=== PATIENT | female | born 1985 | race Caucasian/White ===

== ENCOUNTER 2021-09-04 17:23 | Emergency (ER) | payer OTHER, SELFPAY ==
[2021-09-04 17:24] VITALS: BP 136/99; PULSE 75; RESP 16; TEMP 36.8; O2SAT 100; BMI 23.5
--- NOTE | 2021-09-04 17:42 | CT_ITS ---
EXAM: CT ABDOMEN AND PELVIS WITHOUT INTRAVENOUS CONTRAST CLINICAL INDICATION: Kidney Stone - L flank pain TECHNIQUE: Helically acquired images were obtained of the abdomen and pelvis without intravenous contrast. This CT exam was performed using one or more of the following dose reduction techniques: automated exposure control, adjustment of the mA and/or kV according to patient size, and/or use of iterative reconstruction technique. This report was created using [employer] report generation technology. COMPARISON: 06/12/2015. FINDINGS: LOWER THORAX: Unremarkable. Lung bases are clear. No cardiomegaly. No significant pericardial effusion. ABDOMEN: LIVER: Unremarkable. Homogeneous. GALLBLADDER AND BILE DUCTS: Unremarkable. No calcified gallstones. No gallbladder distention or wall edema. No intra- or extrahepatic biliary ductal dilation. PANCREAS: Unremarkable. No focal cystic mass. SPLEEN: Unremarkable. Normal size without focal cystic or solid mass. ADRENALS: Unremarkable. No nodules. KIDNEYS AND URETERS: Bilateral nonobstructing renal calculi measuring up to 6 mm in diameter. No hydronephrosis. Ureters are normal in course and caliber. No ureteral stones. Normal renal size and position. STOMACH AND BOWEL: Unremarkable. No stomach or bowel distention. No focal inflammatory change. PELVIS: APPENDIX: No evidence of acute appendicitis. Normal visualized appendix. BLADDER: Unremarkable. REPRODUCTIVE: Unremarkable as visualized. No mass. ABDOMEN and PELVIS: INTRAPERITONEAL SPACE: Unremarkable. No ascites or other fluid collection. No free air. BONES/JOINTS: Unremarkable. No suspicious lytic or blastic abnormality. SOFT TISSUES: Unremarkable. No discrete abdominal or pelvic wall hernia. VASCULATURE: Unremarkable. Abdominal aorta is normal in caliber. LYMPH NODES: Unremarkable. No enlarged lymph nodes. CT/Abdomen/Pelvis without Cont IMPRESSION: Bilateral nonobstructing renal calculi. Electronically Signed: Lexis Porter MD at 19:55 EST Reading Location ID and State: [id number] / Tel , Service support ,
--- NOTE | 2021-09-04 17:42 | ED.VIS.GI ---
HPI HPI - GI History of Present Illness Chief Complaint: Flank Pain Informant: patient Abdominal Pain/Flank Pain Onset: Hours (4) Context: Gradual Onset Timing: Continuous and Waxes and wanes Quality: Aching Location: LUQ and Left Flank Current Severity: Moderate Maximum Severity: Moderate Worsened by: Nothing Relieved by: Nothing Nausea/Vomiting/Emesis GI Symptom: Negative for Nausea and Vomiting Diarrhea/Melena/Hematochezia GI Symptom: Negative for Diarrhea, Melena and Hematochezia Associated Symptoms Associated Symptoms: Negative for Dysuria, Frequency, Hematuria and Urgency Narrative Narrative: Patient with a history of kidney stones feels like she is having another 1. Gradual onset left upper quadrant pain progressing and radiating into her left back, feels like prior kidney stones. She has needed lithotripsy in the past and is also passed stones, she has not had one since 2016. [facility] Medical History (Updated 09/04/21 @ 20:[address] Nathan Vences MD) Kidney stones Home Medications Prenatabs FA 1 tab PO DAILY 04/21/16 [History Last Taken 04/20/16 09:00 1 tab] Zantac 75 75 mg PO BID 04/21/16 [History Last Taken 04/21/16 23:00 75 mg] Allergy/AdvReac Type Severity Reaction Status Date / Time No Known Allergies Allergy Verified 09/04/21 17:24 Social History Smoking Status: Never smoker ROS ROS ED Constitutional Constitutional ED: Denies chills or fever(s) Eyes Eyes: Denies change in vision or diplopia ENT ENT ED: Denies rhinorrhea or sore throat Cardiovascular Cardiovascular: Denies chest pain or palpitations Respiratory/Chest Respiratory/Chest: Denies cough or dyspnea Gastrointestinal Gastrointestinal: Reports as per HPI and abdominal pain; Denies diarrhea, nausea or vomiting Genitourinary Genitourinary ED: Reports flank pain; Denies dysuria or hematuria Musculoskeletal Musculoskeletal: Denies back pain or neck pain Integumentary Denies abscess or rash Neurologic Neurologic: Denies headache(s), paresthesias or weakness Psychiatric Psychiatric: Denies anxiety or suicidal thoughts EXAM Physical Exam Const Vital Signs: 09/04/21 17:24 Temperature 98.3 F Temperature Source Temporal Pulse Rate 75 Respiratory Rate 16 Blood Pressure 136/99 H Blood Pressure Mean 111 Pulse Ox 100 Oxygen Delivery Method Room Air Positive well nourished and well developed General Appearance ED: well developed and NAD HEENT Reports moist mucous membranes normocephalic and atraumatic Eyes PERRL and EOMs intact bilaterally Neck full ROM and supple Resp normal respiratory effort and clear to auscultation bilaterally Cardio regular rate, regular rhythm and no murmurs GI non-distended GI Narrative: Mild tenderness in the lateral aspect of the left upper quadrant. No guarding or rebound tenderness. No palpable mass or splenomegaly. Auscultation: normoactive bowel sounds Palpation: soft Back/Spine normal to inspection General Back: CVA tenderness left (Mild) and other FROM Extremity normal to inspection General Extremety ED: Negative for edema, pulses abnormal or tenderness General Extremity: Negative for edema or pulses abnormal Neuro oriented x3, CN's II-XII intact bilaterally and no sensory deficits noted Sensorium / Orientation: awake and alert Motor Exam: strength 5/5 throughout Skin no rashes or lesions noted and no wounds MDM MDM MDM Narrative Medical decision making narrative: Patient was given IV Toradol, her pain is resolved on reevaluation, and upon myself looking at her CT, she has a fairly decent sized stone that is sitting in the bladder although the radiologist did not comment on it. Given this I think she passed the stone. She does have multiple renal calculi that are nonobstructing, I discussed those with her. She states she has passed stones up to 7 mm in the past, 1 of these is 6 mm which I told her about. There were calcium oxalate crystals in her urine, she has been diagnosed with calcium oxalate stones in the past and has a urologist she plans on following up with. We discussed reasons to return. Lab Data Attestation: I reviewed the patient's lab results. Labs: Laboratory Results - last 24 hr 09/04/21 17:35 Urine Color Yellow Urine Clarity Clear Urine pH 5.0 Ur Specific [place] 1.030 Urine Protein 15 H Urine Glucose (UA) Normal Urine Ketones 5 H Urine Occult Blood 25 H Urine Nitrite Negative Urine Bilirubin Negative Urine Urobilinogen 1 H Ur Leukocyte Esterase 25 H Urine RBC 0-5 SEEN Urine WBC 0-5 SEEN Ur Squamous Epith Cells 0-5 SEEN Calcium Oxalate Crystal 1+ Urine Bacteria 1+ Urine Mucus 0 SEEN Urine Test Negative Radiography Diagnostic Testing: Clinical Impression(s) from Imaging Studies Abdomen/Pelvis CT 09/04/21 17:42 IMPRESSION: Bilateral nonobstructing renal calculi. Electronically Signed: Lexis Porter MD at 19:55 EST Reading Location ID and State: [id number] / Tel , Service support , Discharge Plan Triage Chief Complaint: Flank Pain ED Provider: Nathan Vences Dx/Rx/DC Orders Clinical Impression: Colic, ureteral, Urolithiasis Instructions: ED Kidney Stone, Passed Prescriptions: No Action Prenatabs FA tablet 1 tab PO DAILY RF: 0 Zantac 75 tablet 75 mg PO BID RF: 0 Primary Care Provider: Amadeo Martin Referrals: Amadeo Martin, [Primary Care Provider] - As Needed (and/or your urologist) Disposition Disposition: Home, Self Care
[2021-09-04] MEDS: Ketorolac 60 MG/2 ML Vial IM (17:51)
[2021-09-04 18:08] LABS: Mucous, Urine 0 SEEN /hpf (<or=2+)
[2021-09-04 18:26] LABS: Color, Urine Yellow (Yellow); Glucose, Dipstick Normal (Normal); Ketone-Dipstick 5 mg/dl (Negative); Leukocyte Esterase-Dipstick 25 /ul (Negative); Nitrite-Dipstick Negative (Negative); Occult Blood-Urine 25 /ul (Negative); Protein-Dipstick 15 mg/dl (Negative); Urine Bilirubin Dipstick Negative (Negative); Urine Clarity Clear (Clear); Urine Urobilinogen 1 mg/dl (Normal)
--- NOTE | 2021-09-04 18:27 | ED.RN ---
30 mg tor[address]ol given iv. Dr Ru berger. .
[2021-09-04 18:28] LABS: Internal QC Validated? YES +Cl - CLEAR BKGD; Pregnancy, Urine Negative Negative
[2021-09-04 18:33] LABS: Red Blood Cells-Urine 0-5 SEEN /hpf (0-5)
[2021-09-04 18:34] LABS: Bacteria 1+ /hpf (None Seen); Calcium Oxalate Crystals Ur 1+ /hpf (<or=2+); Squamous Epithelial Cells - UA 0-5 SEEN /hpf (5-10); White Blood Cells 0-5 SEEN /hpf (0-5)
[2021-09-04 20:13] VITALS: RESP 16
== END 2021-09-04 20:13 | disposition home or self-care (01) ==
PROVIDERS: Emergency Provider Emergency Medicine; PCP Student in an Organized Health Care Education/Training Program; Visit Provider Emergency Medicine
DX: N20.0 Calculus of kidney (principal); Z87.442 Personal history of urinary calculi
CPT/HCPCS: 74176; 81001; 81025; 96372; 99283

== ENCOUNTER 2022-07-05 07:09 | Emergency (ER) | payer OTHER, SELFPAY ==
[2022-07-05 07:09] VITALS: BP 135/94; PULSE 69; RESP 18; TEMP 36.7; O2SAT 100
[2022-07-05 07:10] VITALS: BP 141/100; PULSE 76; RESP 16; TEMP 36.1; O2SAT 100; BMI 22.4
--- NOTE | 2022-07-05 07:32 | CT_ITS ---
INDICATION: Abdominal pain EXAMINATION: CT ABDOMEN AND PELVIS WITHOUT CONTRAST - CT Abdomen And Pelvis W/O Contrast Injection TECHNIQUE: Helically acquired images were obtained of the abdomen and pelvis without oral or IV contrast. A radiation dose optimization technique was used for this scan. IV Contrast dosage and agent: None. Oral contrast: None. COMPARISON: 09/04/2021. FINDINGS: LOWER CHEST: Lung bases are clear. No cardiomegaly or pericardial effusion. LIVER: Homogeneous. No focal mass. GALLBLADDER AND BILIARY TREE: No calcified gallstones. No gallbladder distension or wall edema. No intra- or extrahepatic biliary ductal dilation. PANCREAS: No focal cystic or solid mass. SPLEEN: Normal size without focal cystic or solid mass. ADRENAL GLANDS: No nodules. KIDNEYS AND URETERS: Punctate bilateral nonobstructing renal stones are again seen, the largest is in the lower pole of the left kidney measuring about 6 mm. Prominence of the pelvicalyceal systems bilaterally not seen on the previous exam. No evidence of ureteral stones. PERITONEUM: No ascites or free air. No other fluid collection. BOWEL: Normal caliber small bowel loops. Unremarkable appendix. No evidence of acute diverticulitis. No focal inflammatory change. LYMPH NODES: No enlarged mesenteric or retroperitoneal lymph nodes. VESSELS: Aorta is non-dilated. URINARY BLADDER: Unremarkable. REPRODUCTIVE ORGANS: 2 cm right adnexal cyst. Tampon in the cervical region. Slightly prominent uterus. ABDOMINAL WALL: No discrete abdominal or pelvic wall hernia. BONES: No lytic or blastic abnormality. CT/Abdomen/Pelvis without Cont IMPRESSION: 1. Persistent bilateral nonobstructing renal stones. 2. Mild bilateral hydronephrosis new since previous exam without evidence of ureteral stones. Recently passed stone is possible. 3. Otherwise no focal acute inflammatory process. Electronically Signed: Bharathi Grayson MD at 8:53 EST ,
--- NOTE | 2022-07-05 07:45 | EDS_ITS ---
HPI History of Present Illness Chief Complaint: Flank Pain Informant: patient Narrative Narrative: Patient presents with sharp left lower quadrant pain. She states she had left flank pain earlier in the week that was like her kidney stone pain but it went away completely. She has had no urinary symptoms. About 5:45 this morning she got sudden sharp pain at the left lower quadrant. It did radiate slightly to her back but mostly it was the left lower quadrant. It seemed to be more anterior than posterior. She did get nauseated but no vomiting. No fevers or chills. She states she felt fine immediately before the onset of this. Her menstrual cycles have been regular because she was placed on the minipill several months ago. But she has not had any pains. Only abdominal surgery is C-sections. [facility] Medical History (Updated 07/05/22 @ 09:[address] John Simmons MD) Kidney stones Home Medications hydrochlorothiazide 25 mg tablet 25 mg PO DAILY 07/05/22 [History Last Taken 07/05/22 07:00] hydrocodone-acetaminophen 5-325mg 5mg-325mg 1 tab PO Q6H PRN pain 3 days #10 tabs 07/05/22 [Rx Last Taken Unknown] norethindrone (contraceptive) 0.35 mg tablet 0.35 mg PO DAILY 07/05/22 [History Last Taken Unknown] ondansetron 4 mg disintegrating tablet 4 mg PO Q8H PRN nausea and vomiting #10 tabs 07/05/22 [Rx Last Taken Unknown] Allergy/AdvReac Type Severity Reaction Status Date / Time No Known Allergies Allergy Verified 09/04/21 17:24 Surgical History (Updated 07/05/22 @ 07:58 by Lulu Alvarez) Previous section Social History Smoking Status: Never smoker ROS ROS ED Constitutional Constitutional ED: Denies chills or fever(s) ENT ENT ED: Denies sore throat Cardiovascular Cardiovascular: Denies chest pain Respiratory/Chest Respiratory/Chest: Denies cough or dyspnea Gastrointestinal Gastrointestinal: Reports abdominal pain and nausea; Denies diarrhea or vomiting Genitourinary Genitourinary ED: Denies dysuria or hematuria Musculoskeletal Musculoskeletal: Reports back pain; Denies neck pain Integumentary Denies rash Neurologic Neurologic: Denies paresthesias or weakness Hematologic/Lymphatic Hematologic/Lymphatic: Denies easy bleeding or easy bruising Allergic/Immunologic Allergic/Immunologic ED: Denies urticaria EXAM Physical Exam Const Vital Signs: 07/05/22 07:10 07/05/22 07:09 07/05/22 09:09 Temperature 97 F L 98.1 F 99.2 F H Temperature Source Temporal Temporal Temporal Pulse Rate 76 69 68 Respiratory Rate 16 18 18 Blood Pressure 141/100 H 135/94 H 128/87 H Blood Pressure Mean 113 107 100 Pulse Ox 100 100 100 Oxygen Delivery Method Room Air Room Air Room Air Positive well nourished and well developed Constitutional Narrative: Patient does not look toxic or ill. She is holding an emesis bag but no vomit ing or dry heaving. General Appearance ED: well developed and NAD; Negative for pallor HEENT Reports moist mucous membranes Eyes General Eye ED: Negative for scleral icterus Neck supple Resp normal respiratory effort and clear to auscultation bilaterally Cardio regular rate and regular rhythm GI normal to inspection, nondistended, normoactive bowel sounds, non-tender and non-distended; Negative for hepatosplenomegaly GI Narrative: Despite the pain, she really does not have tenderness in her abdomen. Back/Spine Back/Spine Narrative: Patient does have some left CVA tenderness but not right. Extremity normal to inspection Neuro Sensorium / Orientation: alert Psych mental status grossly normal Skin no rashes or lesions noted General Skin Exam: Negative for jaundice or pallor MDM MDM MDM Narrative Medical decision making narrative: CT scan shows some mild hydro-. Because of her thin body habitus, it is a little difficult to follow the path of the ureter at times. It is possible she has recently passed stone. Her CBC is normal. Her basic metabolic panel is normal. is negative. Urine shows no blood or sign of infection. I think we get her home. I just found out now that she saw somebody in urologist office yesterday but has an appointment with urologist at [facility] coming up. I will see if we can get copies of her CT as they were planning to do 1. Lab Data Attestation: I reviewed the patient's lab results. Labs: Laboratory Results - last 24 hr 07/05/22 07/05/22 07/05/22 07:41 07:41 07:41 WBC 5.4 RBC 4.56 Hgb 14.5 Hct 41.2 MCV 90.4 MCH 31.8 MCHC 35.2 RDW Std Deviation 36.9 RDW Coeff of Zach 11.2 L Plt Count 216 MPV 9.1 Immature Gran % (Auto) 0.200 Neut % (Auto) 68.4 Lymph % (Auto) 21.3 Sharkey % (Auto) 6.9 Eos % (Auto) 2.1 Baso % (Auto) 1.1 H Absolute Neuts (auto) 3.7 Absolute Lymphs (auto) 1.14 Nucleated RBC % 0 Sodium 136 Potassium 4.0 Chloride 104 Carbon Dioxide 28.0 Anion Gap 4 L BUN 12 Creatinine 0.76 Estim Creat Clear Calc 98.56 Est GFR (MDRD) Af Amer 110 Est GFR (MDRD) Non-Af 91 BUN/Creatinine Ratio 15.9 Glucose 115 H Calcium 9.0 Serum , Qual NEGATIVE Urine Color Urine Clarity Urine pH Ur Specific [place] Urine Protein Urine Glucose (UA) Urine Ketones Urine Occult Blood Urine Nitrite Urine Bilirubin Urine Urobilinogen Ur Leukocyte Esterase Urine RBC Urine WBC Ur Squamous Epith Cells Urine Bacteria Urine Mucus 07/05/22 08:25 WBC RBC Hgb Hct MCV MCH MCHC RDW Std Deviation RDW Coeff of Zach Plt Count MPV Immature Gran % (Auto) Neut % (Auto) Lymph % (Auto) Sharkey % (Auto) Eos % (Auto) Baso % (Auto) Absolute Neuts (auto) Absolute Lymphs (auto) Nucleated RBC % Sodium Potassium Chloride Carbon Dioxide Anion Gap BUN Creatinine Estim Creat Clear Calc Est GFR (MDRD) Af Amer Est GFR (MDRD) Non-Af BUN/Creatinine Ratio Glucose Calcium Serum , Qual Urine Color Yellow Urine Clarity Clear Urine pH 7.0 Ur Specific [place] 1.005 Urine Protein Negative Urine Glucose (UA) Normal Urine Ketones Negative Urine Occult Blood Negative Urine Nitrite Negative Urine Bilirubin Negative Urine Urobilinogen Normal Ur Leukocyte Esterase Negative Urine RBC 0 SEEN Urine WBC 0 SEEN Ur Squamous Epith Cells 0-5 SEEN Urine Bacteria 0 SEEN Urine Mucus 0 SEEN Radiography Diagnostic Testing: Clinical Impression(s) from Imaging Studies Abdomen/Pelvis CT 07/05/22 07:32 IMPRESSION: 1. Persistent bilateral nonobstructing renal stones. 2. Mild bilateral hydronephrosis new since previous exam without evidence of ureteral stones. Recently passed stone is possible. 3. Otherwise no focal acute inflammatory process. Electronically Signed: Bharathi Grayson MD at 8:53 EST , CT scan was looked at by me. It was also read by radiology that showed persistent bilateral stones. There was mild bilateral hydronephrosis that was new. Possibility of recently passed stone. Otherwise no acute process. I do note that there are multiple phleboliths or calcifications in the pelvis that are near the path of the ureter but not definitively within it. Discharge Plan Triage Chief Complaint: Flank Pain ED Provider: John Simmons Dx/Rx/DC Orders Clinical Impression: Acute left flank pain Instructions: ED Kidney Stone, Passed Prescriptions: New hydrocodone-acetaminophen 5-325 mg tablet 1 tab PO Q6H PRN (Reason: pain) 3 Days Qty: 10 0RF ondansetron 4 mg tablet,disintegrating 4 mg PO Q8H PRN (Reason: nausea and vomiting) Qty: 10 0RF No Action hydrochlorothiazide 25 mg tablet 25 mg PO DAILY norethindrone (contraceptive) 0.35 mg tablet 0.35 mg PO DAILY Label Comments: TAKE 1 TABLET BY MOUTH EVERY DAY Primary Care Provider: Amadeo Martin Referrals: Amadeo Martin DO [Primary Care Provider] - Activity Restrictions/Additional Instructions: Follow-up with urologist at [facility] as scheduled Disposition Disposition: Home, Self Care
[2022-07-05] MEDS: Morphine 4 MG/ML Syringe IV (07:46)
[2022-07-05] MEDS: Ketorolac 15 MG/ML Vial IV (07:46)
[2022-07-05] MEDS: Ondansetron 4 MG/2 ML Vial IV (07:47)
[2022-07-05 07:53] LABS: Absolute Lymphocyte Count 1.14 X10^3/uL (0.83-4.51); Absolute Neutrophil Count 3.7 X10^3/uL (2.0-7.7); Basophil# 0.06 X10^3/uL; Basophil% 1.1 % (0-1); Eosinophil# 0.11 X10^3/uL; Eosinophils% 2.1 % (0-5); Hematocrit 41.2 % (37-47); Hemoglobin 14.5 g/dL (12.0-15.0); Lymphocyte # 1.14 X10^3/ul (0.83-4.51); Lymphocyte % 21.3 % (19-41); Mean Corp Hgb Conc 35.2 g/dL (32-36); Mean Corpuscular Hgb 31.8 pg (27.0-32.0); Mean Corpuscular Volume 90.4 fL (81-99); Mean Platelet Vol. 9.1 fl (6.2-12.0); Monocyte# 0.37 X10^3/uL; Monocyte% 6.9 % (0-10); NRBC Flagged by Analyzer 0 % (0-5); Neutrophil # 3.67 X10^3/uL (2.7-7.7); Neutrophil % 68.4 % (47-70); Platelet Count 216 K/mm3 (150-450); RBC Distribution Width CV 11.2 % (11.6-14.6); RBC Distribution Width SD 36.9 fl (35.1-43.9); Red Blood Count 4.56 M/mm3 (4.2-5.4); White Blood Count 5.4 K/mm3 (4.4-11.0)
[2022-07-05] MEDS: 0.9% Normal Saline 1,000 ML 1000 ML IV (07:53)
[2022-07-05 08:01] LABS: Internal QC Validated? YES +Cl - CLEAR BKGD; Pregnancy, Serum, hCG Quali. NEGATIVE Negative
[2022-07-05 08:08] LABS: Anion Gap 4 (5-15); BUN 12 mg/dL (7-18); BUN/Creat Ratio 15.9 RATIO (10-20); Chloride 104 mmol/L (98-107); Creatinine, Serum 0.76 mg/dL (0.55-1.02); EST Glomerular Filtration Rate 91 mL/min (>60); Est Glom Filt Rate - Afr Amer 110 mL/min (>60); Estimated Creatinine Clearance 98.56 ml/min; Glucose 115 mg/dL (74-106); Sodium Level 136 mmol/L (136-145)
[2022-07-05 08:29] LABS: Bacteria 0 SEEN /hpf (None Seen); Mucous, Urine 0 SEEN /hpf (<or=2+); Red Blood Cells-Urine 0 SEEN /hpf (0-5); White Blood Cells 0 SEEN /hpf (0-5)
[2022-07-05 08:31] LABS: Color, Urine Yellow (Yellow); Glucose, Dipstick Normal (Normal); Ketone-Dipstick Negative (Negative); Leukocyte Esterase-Dipstick Negative /ul (Negative); Nitrite-Dipstick Negative (Negative); Occult Blood-Urine Negative /ul (Negative); Protein-Dipstick Negative (Negative); Specific Gravity, Urine 1.005 (1.002-1.030); Urine Bilirubin Dipstick Negative (Negative); Urine Clarity Clear (Clear); Urine Urobilinogen Normal (Normal)
[2022-07-05 08:37] LABS: Squamous Epithelial Cells - UA 0-5 SEEN /hpf (5-10)
[2022-07-05 09:09] VITALS: BP 128/87; PULSE 68; RESP 18; TEMP 37.3; O2SAT 100
[2022-07-05 09:27] VITALS: BP 118/84; PULSE 72; RESP 16; TEMP 37.3; O2SAT 99
== END 2022-07-05 09:38 | disposition home or self-care (01) ==
PROVIDERS: Emergency Provider Emergency Medicine; PCP Student in an Organized Health Care Education/Training Program; Visit Provider Emergency Medicine
DX: R10.32 Left lower quadrant pain (principal); N13.2 Hydronephrosis with renal and ureteral calculous obstruction; Z79.899 Other long term (current) drug therapy
CPT/HCPCS: 74176; 80048; 81001; 84703; 85025; 96361; 96374; 96375; 99283; J7030; A4216; J2405

== ENCOUNTER 2024-01-19 20:25 | Emergency (ER) | payer OTHER, SELFPAY ==
[2024-01-19 20:25] VITALS: BP 160/115; PULSE 110; RESP 18; TEMP 36.6; O2SAT 100; BMI 21.4
[2024-01-19 20:27] VITALS: BP 160/115; PULSE 110; RESP 18; TEMP 36.6; O2SAT 100
[2024-01-19 20:48] VITALS: BP 131/95; PULSE 95; RESP 16; O2SAT 99
--- NOTE | 2024-01-19 21:42 | CT_ITS ---
INDICATION: right facial pain EXAMINATION: CT FACIAL BONES - CT Maxillofacial W/ Contrast Injection TECHNIQUE: Helically acquired images were obtained of the facial bones. A radiation dose optimization technique was used for this scan. IV Contrast dosage and agent: 75 cc [id number] COMPARISON: None. FINDINGS: SOFT TISSUES: No focal subcutaneous swelling. No discrete fluid collections. VISUALIZED PARANASAL SINUSES: Clear. VISUALIZED MASTOID AIR CELLS: Clear. FACIAL BONES, MANDIBLE AND TMJs: No displaced facial bone fracture. No lytic or blastic abnormality. VISUALIZED DENTITION: No periodontal osseous erosion. ORBITAL CONTENTS: Both globes, extraocular muscles and retrobulbar fat appear unremarkable. CT/Sinus/Facial Bone WITH Contras IMPRESSION: Unremarkable study. Electronically Signed: Chris Durand MD at 22:57 EDT ,
--- NOTE | 2024-01-19 23:20 | EDS_ITS ---
HPI History of Present Illness Chief Complaint: Headache Informant: patient Narrative Narrative: 38-year-old female presenting to the emergency room with facial pain and headache. Patient states that she has a tooth that she has been seen a dentist for on the left that had a root canal performed earlier this year. She has continued to have some pain with that and has a fracture of the tooth. She developed some pain on the right jaw right maxillary sinus region and she discussed this with her dentist last week and she had x-rays and was felt it was probably not tooth related. She was placed on amoxicillin for possible sinus infection. She states has not made a difference. She notes the development of a frontal headache sometimes into the occiput. She denies any arm or leg symptoms no swallowing difficulty. No trismus. No facial swelling or rashes. No ear symptoms. No vision changes. Patient states she has an appointment tomorrow with her dentist to get the left lower tooth worked on was concerned that there may be something more that is not being noted particularly sinusitis. Patient denies any neck pain problem. [facility] Medical History Kidney stones Home Medications ?Medication ?Instructions ?Recorded ?Last Taken ?Type hydrochlorothiazide 25 mg tablet 25 mg PO DAILY 07/05/22 07/05/22 07:00 History Allergy/AdvReac Type Severity Reaction Status Date / Time No Known Allergies Allergy Verified 01/19/24 20:52 Family History Mother Hypertension Surgical History Previous section Social History household members: spouse and children current occupational status: employed Smoking Status: Never smoker ROS ROS ED Constitutional Constitutional ED: Denies chills, fever(s) or weight loss Eyes Eyes: Denies change in vision or diplopia ENT ENT ED: Reports other Details: See history of present illness ; Denies ear pain, rhinorrhea or sore throat Cardiovascular Cardiovascular: Denies chest pain, orthopnea, palpitations or racing heartbeat Respiratory/Chest Respiratory/Chest: Denies cough, dyspnea or orthopnea Gastrointestinal Gastrointestinal: Denies abdominal pain, diarrhea, nausea or vomiting Genitourinary Genitourinary ED: Denies dysuria, hematuria or urinary frequency Musculoskeletal Musculoskeletal: Denies arthralgias, back pain, myalgias or neck pain Integumentary Denies abscess, Abrasions or rash Neurologic Neurologic: Reports headache(s); Denies paresthesias or weakness Psychiatric Psychiatric: Denies anxiety, depression, suicidal ideation or suicidal thoughts Endocrine Endocrinology: Denies polydipsia, polyphagia or polyuria Allergic/Immunologic Allergic/Immunologic ED: Denies mouth swelling, tongue swelling or urticaria EXAM Physical Exam Const Vital Signs: 01/19/24 20:25 01/19/24 20:27 01/19/24 20:48 Temperature 97.8 F 97.8 F Temperature Source Temporal Temporal Pulse Rate 110 H 110 H 95 Respiratory Rate 18 18 16 Blood Pressure 160/115 H 160/115 H 131/95 H Blood Pressure Mean 130 130 107 Pulse Ox 100 100 99 Oxygen Delivery Method Room Air Positive well nourished and well developed General Appearance ED: well developed HEENT Reports normocephalic, head/scalp atraumatic and moist mucous membranes HEENT Narrative: Floor the mouth is soft. Tongue appears normal. Oral pharyngeal space appears normal. No tenderness on tooth percussion on the right. No trismus. There is no salivary gland swelling. No rashes. Tympanic membrane and ear canal appear normal. Mastoid process appears normal. Ocular exam appears normal Eyes PERRL and EOMs intact bilaterally Neck no lymphadenopathy, supple and no JVD Resp normal respiratory effort and clear to auscultation bilaterally Cardio regular rate, regular rhythm and no murmurs GI normal to inspection, nondistended, normoactive bowel sounds and non-tender Palpation: soft Back/Spine no CVA tenderness and normal ROM Extremity normal to inspection General Extremety ED: Negative for edema General Extremity: Negative for edema Neuro oriented x3 and CN's II-XII intact bilaterally Sensorium / Orientation: alert Motor Exam: strength 5/5 throughout Psych mental status grossly normal Mood & Affect: Negative for depressed or tearful Skin no rashes or lesions noted and no wounds MDM MDM MDM Narrative Medical decision making narrative: Differential diagnosis includes but not limited to sinusitis primary headache disorder tumor salivary gland obstruction sial adenitis trigeminal neuralgia TMJ syndrome dental caries dental abscess CT of the facial bones with contrast was obtained which is negative for acute findings. I do not feel strongly CT of the brain will add to the workup as she does not have any neurologic symptoms other than headache. The headache itself is not consistent. I discussed the results with the patient. She will see her dentist tomorrow. If she is not improving I would recommend follow-up if she is worsening please return to the emergency department she is comfortable with this plan History & Record Review Discussion w/independent historian: Patient Radiography Diagnostic Testing: Clinical Impression(s) from Imaging Studies Facial/Sinus 01/19/24 21:42 IMPRESSION: Unremarkable study. Electronically Signed: Chris Durand MD at 22:57 EDT , Discharge Plan Triage Chief Complaint: Headache ED Provider: Alf Duarte Dx/Rx/DC Orders Clinical Impression: Acute facial pain, Headache Prescriptions: No Action hydrochlorothiazide 25 mg tablet 25 mg PO DAILY Primary Care Provider: Amadeo Martin Referrals: Amadeo Martin, [Primary Care Provider] - Activity Restrictions/Additional Instructions: If you are worsening concerns not improving please return to the emergency room Print Language: Nauruan Disposition Disposition: Home, Self Care
[2024-01-19 23:24] VITALS: BP 116/72; PULSE 78; RESP 15; O2SAT 98
[2024-01-19 23:26] VITALS: BP 116/72; PULSE 78; RESP 15; TEMP 36.4; O2SAT 98
== END 2024-01-19 23:27 | disposition home or self-care (01) ==
PROVIDERS: Emergency Provider Emergency Medicine; PCP Student in an Organized Health Care Education/Training Program; Visit Provider Emergency Medicine
DX: R51.9 Headache, unspecified (principal)
CPT/HCPCS: 70487; 99283; Q9967; A4216